=== PATIENT | female | born 1960 | race Caucasian/White ===

== ENCOUNTER 2022-05-14 10:54 | Emergency (ER) | payer OTHER, SELFPAY ==
[2022-05-14] VITALS (8 sets, daily range): BP systolic 135–144; BP diastolic 84–91; PULSE 55–64; RESP 15–24; TEMP 36.9; O2SAT 95–100; BMI 24.0
--- NOTE | 2022-05-14 11:10 | DI.RAD.S_ITS ---
PROCEDURE: XR CHEST 1V INDICATIONS: chest pain TECHNIQUE: One view of the chest was acquired. COMPARISON: None. FINDINGS: Surgical changes and devices: None. Lungs and pleura: Lungs are clear. No pleural effusions or pneumothorax. Mediastinum: Mediastinal contours appear normal. Heart size is normal. Bones and chest wall: No suspicious bony lesions. Overlying soft tissues appear unremarkable. IMPRESSION: No acute cardiopulmonary findings Approved by: Alli Stewart M.D. on 05/14/2022 at 11:13
[2022-05-14 11:32] LABS: INR 1.1 (0.9-1.3); Prothrombin Time 12.3 SECONDS (10.1-12.7)
[2022-05-14 11:35] LABS: PTT Partial Thromboplastin Tim 30 SECONDS (26-36)
[2022-05-14 11:37] LABS: Alanine Aminotransferase 41 IU/L (<35); Albumin 3.8 g/dL (3.5-5.0); Albumin Globulin Ratio 1.3 (1.0-2.8); Alkaline Phosphatase 51 U/L (38-126); Aspartate Aminotransferase 34 IU/L (14-36); BUN Creatinine Ratio 21.1 (6-22); Bilirubin Total 0.6 mg/dL (0.2-1.3); Blood Urea Nitrogen 16 mg/dL (7-17); Calcium 8.9 mg/dL (8.4-10.2); Carbon Dioxide 25 mmol/L (22-32); Chloride 105 mmol/L (98-107); Creatine Kinase 48 U/L (30-135); Estimated Glomerular Filt Rate > 60 mL/min (>60); Globulin 2.9 g/dL (1.7-4.1); Glucose 98 mg/dL (80-110); HEMOLYSIS < 15 (0-50); Lipase 193 U/L (23-300); Sodium 138 mmol/L (137-145); Total Protein 6.7 g/dL (6.3-8.2)
[2022-05-14 11:48] LABS: Troponin I < 0.012 ng/mL (0.01-0.034)
[2022-05-14 11:54] LABS: Add Manual Diff / Slide Review NO; Basophils Absolute Auto 0 /uL (0-100); Eosinophils Absolute Auto 600 /uL (0-450); Eosinophils Percent Auto 13.2 % (2-4); Hematocrit 40.6 % (36-46); Hemoglobin 13.7 g/dL (12.0-16.0); Lymphocytes Absolute Auto 1300 /uL (1100-4500); Lymphocytes Percent Auto 30.3 % (25-40); Mean Corpuscular HGB Conc 33.7 % (30-36); Mean Corpuscular Hemoglobin 30.5 PG (26-34); Mean Corpuscular Volume 90.6 fL (80-100); Monocytes Absolute Auto 400 /uL (0-900); Monocytes Percent Auto 10.2 % (3-14); Neutrophils Absolute Auto 2000 /uL (1500-7000); Neutrophils Percent Auto 45.3 % (50-75); Platelet Count 232 X10^3/uL (150-400); Red Blood Cell Count 4.48 X10^6/uL (4.0-5.2); White Blood Cell Count 4.3 X10^3/uL (4.5-11.0)
--- NOTE | 2022-05-14 12:07 | ED_ITS ---
HPI - Chest Pain General Chief Complaint: Chest Pain Stated Complaint: chest tension/pain Time Seen by Provider: 05/14/22 12:00 History of Present Illness HPI narrative: Patient is a healthy 61-year-old female who presents with chest discomfort. She says it started yesterday she felt like a tightness going across her chest with some fluttering. It was intermittent sometimes went up the right side of her neck. It happened mostly while sitting not necessarily while active. He descr ibes as lasting seconds not minutes. She denies any shortness of breath nausea vomiting or diaphoresis. This has never happened to her before. She is no recent travel history. No family history of coronary artery disease. She did not 1 come in yesterday because she thought it might be anxiety and needed to wait for insurance to kick in today. She also concerned she has some irritation to 1 of her left toes it has been there for awhile but actually looks better. No fever or chills. No significant erythema. Related Data Home Medications Medication Instructions Recorded Confirmed Calcium 1200 mg PO BID 06/15/20 12/10/20 Vit D 4000 IU PO DAILY 06/15/20 12/10/20 cetirizine 10 mg capsule (Zyrtec) 10 mg PO DAILY 06/15/20 12/10/20 magnesium 200 mg tablet 200 mg PO DAILY 06/15/20 12/10/20 omega 3-dha 120 mg-epa 180 mg-fish cap PO BID 06/15/20 12/10/20 oil 600 mg capsule (Extreme [place]-3) valacyclovir 500 mg tablet 500 mg PO .PRN PRN 06/15/20 12/10/20 (Valtrex) Allergies Allergy/AdvReac Type Severity Reaction Status Date / Time Sulfa (Sulfonamide Allergy Intermediate skin rash, Verified 12/10/20 14:55 Antibiotics) hives Review of Systems Review of Systems ROS Unobtainable: All systems reviewed & are unremarkable except as noted in HPI and below Patient History Social History Smoking Status: Current some day smoker Smoking Status: Current some day smoker Exam Initial Vital Signs Initial Vital Signs: Vital Signs Pulse Rate 61 05/14/22 11:08 Respiratory Rate 24 05/14/22 11:08 Pulse Oximetry 95 05/14/22 11:08 GENERAL: Alert pleasant well-appearing 61-year-old female and in no acute distress. HEENT: Head atraumatic,EOMI, pupils reactive, face symmetric, moist mucous membranes CARDIOVASCULAR: Regular rate and rhythm without murmurs, rubs or gallops. RESPIRATORY: Breath sounds equal bilaterally, no wheezes rales or rhonchi. Speaks in full sentences no respiratory distress. ABDOMEN: Soft, nontender. Normoactive bowel sounds all 4 quadrants. No guardin g or rebound. EXTREMITIES: Normal range of motion, no clubbing or edema. Neurovascularly intact NEUROLOGICAL: Alert and oriented x4.Normal gait and speech. SKIN: Warm, dry, no laceration, no petechiae, no rashes or lesions. Left middle toe small area of erythema no streaking no fluctuation overall appears well Scores HEART Score Heart Score history: Slightly Suspicious Heart Score EKG: Normal Heart Score Age: 45-64 years old Heart Score risk factors: No known risk factors Heart Score troponin: < or = to normal limit Heart Score Total: 1 Course Orders Ordered: ED Orders 05/14/22 11:10 XR chest 1V Stat 05/14/22 11:11 Complete Blood Count AUTO DIFF Stat Comprehensive Metabolic Panel Stat Lipase Stat Magnesium Stat Partial Thromboplastin Time Stat Prothrombin Time INR Stat Troponin & CK Cardiac Panel Stat 05/14/22 11:14 EKG-12 Lead Stat Vital Signs Vital signs: Vital Signs - 8 hr 05/14/22 11:16 05/14/22 11:08 05/14/22 11:09 Temperature 98.4 F Pulse Rate 64 61 Respiratory Rate 16 24 Blood Pressure 144/84 H 144/84 H Pulse Oximetry 98 95 Oxygen Delivery Method Room Air 05/14/22 11:09 05/14/22 11:30 05/14/22 12:00 Temperature Pulse Rate 63 58 L 58 L Respiratory Rate 17 20 17 Blood Pressure Pulse Oximetry 98 100 100 Oxygen Delivery Method Room Air 05/14/22 12:30 05/14/22 13:00 05/14/22 13:16 Temperature Pulse Rate 60 55 L Respiratory Rate 21 15 Blood Pressure 135/91 H Pulse Oximetry 99 100 Oxygen Delivery Method Room Air MDM - Chest Pain Lab Data Result diagrams: 05/14/22 11:11 05/14/22 11:11 Labs: Lab Results 05/14/22 05/14/22 05/14/22 Range/Units 11:11 11:11 11:11 WBC 4.3 L (4.5-11.0) X10^3/uL RBC 4.48 (4.0-5.2) X10^6/uL Hgb 13.7 (12.0-16.0) g/dL Hct 40.6 (36-46) % MCV 90.6 (80-100) fL MCH 30.5 (26-34) PG MCHC 33.7 (30-36) % RDW 13.0 (11.6-14.8) % Plt Count 232 (150-400) X10^3/uL Neut % (Auto) 45.3 L (50-75) % Lymph % (Auto) 30.3 (25-40) % [place] % (Auto) 10.2 (3-14) % Eos % (Auto) 13.2 H (2-4) % Baso % (Auto) 1.0 (0-2) % Neut # (Auto) 2000 (0941-2192) /uL Lymph # (Auto) 1300 (8084-5777) /uL [place] # (Auto) 400 (0-900) /uL Eos # (Auto) 600 H (0-450) /uL Baso # (Auto) 0 (0-100) /uL PT 12.3 (10.1-12.7) SECONDS INR 1.1 (0.9-1.3) APTT 30 (26-36) SECONDS Sodium 138 (137-145) mmol/L Potassium 4.0 (3.4-5.1) mmol/L Chloride 105 (98-107) mmol/L Carbon Dioxide 25 (22-32) mmol/L BUN 16 (7-17) mg/dL Creatinine 0.76 (0.52-1.04) mg/dL Estimated GFR > 60 (>60) mL/min BUN/Creatinine Ratio 21.1 (6-22) Glucose 98 (80-110) mg/dL Calcium 8.9 (8.4-10.2) mg/dL Magnesium 2.0 (1.6-2.3) mg/dL Total Bilirubin 0.6 (0.2-1.3) mg/dL AST 34 (14-36) IU/L ALT 41 H (<35) IU/L Alkaline Phosphatase 51 (38-126) U/L Total Creatine Kinase 48 (30-135) U/L CK-MB (CK-2) TNP CK-MB (CK-2) Rel Index TNP Troponin I < 0.012 (0.01-0.034) ng/mL Total Protein 6.7 (6.3-8.2) g/dL Albumin 3.8 (3.5-5.0) g/dL Globulin 2.9 (1.7-4.1) g/dL Albumin/Globulin Ratio 1.3 (1.0-2.8) Lipase 193 (23-300) U/L Imaging Data Chest x-ray: Radiologist's Impression: XRay Report Signed Patient: Susy Qurioz MR#: [id number] : 1960 Acct:[id number] Age/Sex: 61 / F Date of Service: 05/14/22 Loc: ED Accession Number: [id number] ?? Procedure: XR chest 1V Ordering Provider: Annmarie Gonzales D.O. PROCEDURE:? XR CHEST 1V ? INDICATIONS:? chest pain ? TECHNIQUE:? One view of the chest was acquired.? ? COMPARISON:? None. ? FINDINGS:? ? Surgical changes and devices:? None.? ? Lungs and pleura:? Lungs are clear.? No pleural effusions or pneumothorax.? ? Mediastinum:? Mediastinal contours appear normal.? Heart size is normal.? ? Bones and chest wall:? No suspicious bony lesions.? Overlying soft tissues appear unremarkable.? ? IMPRESSION:? No acute cardiopulmonary findings ? ? ? Approved by: Alli Stewart M.D. on 05/14/2022 at 11:13? 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 He has been ongoing for over 24 hours it sometimes goes up to her right neck. It is not consistent. Sounds like atypical chest pain. Risk factors would include being female and age. Otherwise she does not have any risk factors. Sounds were like possible arrhythmia versus stress. Blood work is overall reassuring she is a negative troponin an otherwise negative workup. I have reviewed her monitor myself I do not see any PVCs or arrhythmia she reports having similar symptoms while in the ED. Differential diagnosis includes acute coronary syndrome, arrhythmia, anxiety, pulmonary embolism, pneumothorax, pneumonia Discharge Plan Departure Patient Disposition: Home Clinical Impression: Atypical chest pain, Heart palpitations Instructions: DI for Atypical Chest Pain, DI for Palpitations Activity Restrictions/Additional Instructions: *You have been diagnosed with palpitations, atypical chest pain *What to do: At this time emergency department workup is negative. I still recommend that you follow-up with your primary care provider for further workup including cardiac testing stress test and echocardiogram. If you should have new or worsening or persistent symptoms please return to emergency department f or evaluation *Continue to take medications as directed *Follow up with your primary care provider in 2-3 days or call [phone] *Return to ER if you should have increasing chest pain palpitations dizziness lightheadedness shortness of breath or any new, worsening or concerning symptoms Prescriptions: No Action Extreme [place]-3 120-180-600 mg capsule PO BID magnesium 200 mg tablet 200 mg PO DAILY Zyrtec 10 mg capsule 10 mg PO DAILY Calcium 1200 mg PO BID valacyclovir [Valtrex] 500 mg tablet 500 mg PO .PRN PRN Vit D 4000 IU PO DAILY Referrals: Asad Berger MD [Primary Care Provider] -
== END 2022-05-14 13:20 | disposition home or self-care (01) ==
PROVIDERS: Emergency Provider Emergency Medicine; PCP Internal Medicine
DX: R07.89 Other chest pain (principal); R00.2 Palpitations; M54.2 Cervicalgia
CPT/HCPCS: 36415; 71045; 80053; 82550; 83690; 83735; 84484; 85025; 85610; 85730; 93005; 99283; 99284

== ENCOUNTER → 2022-07-10 07:48 | Outpatient (CLI) | payer OTHER, SELFPAY ==
--- NOTE | 2022-07-11 23:06 | DI.NM.S_ITS ---
DATE OF SERVICE: 07/10/2022 PROCEDURE PERFORMED: Exercise treadmill stress and rest myocardial perfusion imaging with gating to assess ejection fraction and regional wall motion. ORDERING PROVIDER: Asad Berger MD. INDICATIONS: The patient is a 61-year-old female with atypical chest discomfort and an abnormal ECG. EXERCISE TREADMILL TESTING: The patient was able to exercise for 9 minutes on a standard Leo protocol suggesting excellent exercise capacity with an SAW of - 35%, achieving 8.9 METS. She had a normal heart rate and blood pressure response to exercise, achieving a maximum heart rate of 151 BPM (96% of her predicted maximum). She had no chest discomfort or other anginal symptoms. Her resting ECG shows an incomplete LBBB with poor R-wave progression, but relatively normal ST segments. With stress, there were no significant ST-segment shifts or arrhythmias. At 7 minutes, 30 seconds of exercise, at a heart rate of 136 BPM, 24.8 millicuries of technetium-99m Myoview was injected and she was imaged 10 minutes later using a gated SPECT acquisition protocol. The day prior, while at rest, she had been injected with 26.2 millicuries of technetium-99m Myoview and imaged 15 minutes later, again using a gated SPECT acquisition protocol. FINDINGS: 1. Raw data: There is fairly good myocardial tracer uptake although with some motion noted on the resting images. While the lung/heart ratio is elevated at 0.49, which can be a sign of pulmonary congestion, this is not visually evident and thus lacks specificity. The TID ratio appears normal at 1.20. 2. Quantitated gated SPECT: Post-stress ejection fraction is estimated at 76% with no focal wall motion abnormalities, specifically the mid to distal anterior wall and anterior septum have good contractility. The resting images are fairly poor image quality which precludes assessment of the ejection fraction but the resting end-diastolic volume is likely normal, around at 82 mL. 3. Myocardial perfusion imaging: Post-stress supine images show a mild perfusion defect in the mid to distal anterior septum extending to the apex but no other perfusion defects. This defect improves, but does not completely resolve on the prone images. The resting images show a similar perfusion pattern although with a slightly more profound defect in the distal anterior wall and septum but no areas of improvement. IMPRESSION: 1. Probable normal myocardial perfusion study for ischemia. 2. Mild, fixed mid to distal anterior wall and septal perfusion defect that improves, although does not completely resolve on the prone images, andmost likely reflects a left bundle-branch block artifact rather than a previous myocardial infarction given the normal contractility in this area; however, the latter cannot be entirely excluded. There is no evidence for any myocardial ischemia. 3. Normal left ventricular size and systolic function without focal wall motion abnormality. While the lung/heart ratio is mildly elevated, which can be a sign of pulmonary congestion, this is nonspecific and clinical correlation is needed. 4. Excellent exercise capacity without angina or ECG evidence of ischemia although the presence of an incomplete left bundle-branch block makes ST-segment analysis challenging. There were no arrhythmias. Susy Quiroz - MIGDALIA/yumi/dav doc#: [id number]/job#: [id number] dd: 07/11/2022 13:03:00 dt: 07/11/2022 22:47:00 DICTATING MD/COPIES TO: Erick Choudhury MD; Asad Berger M.D. COPIES MNE: SHANTA;
== END ==
PROVIDERS: PCP Internal Medicine; Referring Provider Internal Medicine; Visit Provider Internal Medicine
DX: R07.89 Other chest pain (principal); R94.31 Abnormal electrocardiogram [ECG] [EKG]
CPT/HCPCS: 78452; 93017; A9502